=== PATIENT | female | born 1945 | race Caucasian/White ===

== ENCOUNTER 2019-10-01 23:27 | Emergency (ER) | payer MEDICARE ==
--- NOTE | 2019-10-02 00:12 | RAD ---
Exam:Right shoulder 3 views HISTORY: Pain. Injury. COMPARISON: None FINDINGS: Displaced comminuted fracture involving the right humeral neck. IMPRESSION: 1. Proximal right humerus fracture
[2019-10-02] MEDS ORDERED: Bacitracin 1 PK ONE (00:26)
[2019-10-02] MEDS ORDERED: HYDROcodone/Acetaminophen 5/325 mg Tablet ONE (00:26)
== END 2019-10-02 01:00 | disposition home or self-care (01) ==
LOC: MADERS 23:27
DX: S42.201A Unspecified fracture of upper end of right humerus, initial encounter for closed fracture (principal); S40.011A Contusion of right shoulder, initial encounter; S50.311A Abrasion of right elbow, initial encounter; I10 Essential (primary) hypertension; J44.9 Chronic obstructive pulmonary disease, unspecified; W18.09XA Striking against other object with subsequent fall, initial encounter; Z79.899 Other long term (current) drug therapy
CPT/HCPCS: 29105

== ENCOUNTER 2025-01-15 13:47 | Emergency (ER) | payer MEDICARE ==
[2025-01-15 14:56] LABS: Glucose, Urine (Dipstick) Negative (Negative); Leukocyte Trace (Negative); Protein, Urine (Dipstick) Negative (Neg-Trace); Specific Gravity, Urine 1.010 (1.005-1.030)
[2025-01-15 15:00] LABS: Bacteria/HPF Rare-Few HPF (None Seen); CAUTI Indications for Culture Dysuria,urgency,freq; RBC/HPF 0-3 HPF (0-3); WBC/HPF 0-3 HPF (0-3)
[2025-01-15 15:01] LABS: Urine Culture Reflex No No
== END 2025-01-15 16:03 | disposition home or self-care (01) ==
LOC: MADERS 13:47
DX: R33.9 Retention of urine, unspecified (principal); N39.0 Urinary tract infection, site not specified; E03.9 Hypothyroidism, unspecified; I10 Essential (primary) hypertension; Z79.890 Hormone replacement therapy; Z79.899 Other long term (current) drug therapy
CPT/HCPCS: 51798; 81001; 87086; 99283